=== PATIENT | male | born 1955 | race Caucasian/White ===

== ENCOUNTER 2016-12-01 05:43 | Emergency (ER) | payer BC ==
[~2016-12-01] VITALS: Ht 180.3 cm; Wt 104.5 kg
[2016-12-01 06:15] LABS: HEMATOCRIT 40.2 % (38.0-50.0); MCH 29.2 PG (29.0-34.0); MCHC 33.6 G/DL (30.0-36.0); MEAN PLAT.VOLUME 9.1 uM^3 (9.0-12.4); PLATELET COUNT 229 K/uL (156-360); RBC DIS.WIDTH-CV 13.9 % (11.8-14.6); RBC DIS.WIDTH-SD 43.2 % (39-53); RED BLOOD COUNT 4.62 M/uL (4.00-5.50); WHITE BLOOD COUNT 8.8 K/uL (4.1-10.2)
[2016-12-01 06:29] LABS: CHLORIDE 105 mEq/L (99-109); SODIUM 138 mEq/L (136-147)
[2016-12-01 06:31] LABS: GLUCOSE 125 mg/dL (70-99)
[2016-12-01 06:32] LABS: ANION GAP 9 MEQ/L (2-14)
[2016-12-01 06:34] LABS: GFR ESTIMATE (CALCULATED) > 59 mL/min/
[2016-12-01 06:35] LABS: UREA NITROGEN (BUN) 22 mg/dL (9-23)
[2016-12-01 11:00] VITALS: BP 140/78
== END 2016-12-01 11:01 | disposition home or self-care (01) ==
LOC: EME 05:43
PROVIDERS: Emergency Medicine
DX: S70.11XA Contusion of right thigh, initial encounter (principal); W13.2XXD Fall from, out of or through roof, subsequent encounter
CPT/HCPCS: 73701; 80048; 82550; 85027; 99281; 99285; J7040